=== PATIENT | male | born 1995 | race Asian ===

== ENCOUNTER 2016-08-16 07:04 | Emergency (ER) | payer OTHER ==
[2016-08-16 07:17] VITALS: BP 124/81; PULSE 85; RESP 17; TEMP 98.2; O2SAT 98
--- NOTE | 2016-08-16 07:44 | EDPHY ---
H & P Time Seen by Provider: 08/16/16 07:17 HPI/ROS: CHIEF COMPLAINT: Facial injury HISTORY OF PRESENT ILLNESS: The patient is a 21-year-old male who presents emergency department with facial injury. The patient states he tripped and fell upon waking this morning. He landed on his face. He now has significant swelling and discomfort around his nose. He thinks his nose is slightly deformed. He has a mild headache. Patient also complains of a chipped left upper front tooth. There is no tooth pain. He has a normal bite. No neck pain or back pain. The patient denies other injury. REVIEW OF SYSTEMS: My complete review of systems is negative except as mentioned in the HPI. Past Medical/Surgical History: Denies Past surgical history: Denies Smoking Status: Current some day smoker Physical Exam: Vitals noted GENERAL: No acute distress, alert. HEAD/face: No evidence of head trauma. Patient has a swollen nose and it appears slightly deformed to the left. There is no significant crepitus. No surrounding bony tenderness to palpation or crepitus. EYES: PERRLA, EOMI, normal to inspection. ENT: Airway intact, patient has an Carlos 1 fracture of his #9, no malocclusion , no hemotympanum, normal external examination. No septal hematoma. NECK: The trachea is midline. There is no crepitus. The C-spine is nontender. NEXUS criteria is negative (no midline tenderness, no distracting injury, no altered mental status, no recent alcohol use, no focal neurologic deficit). RESPIRATORY: no respiratory distress. CVS: well perfused. BACK: no tenderness. SKIN: Normal color, warm, dry. No pallor or diaphoresis. EXTREMITIES: Atraumatic, neurovascularly intact distally in all extremities, pelvis is stable , hips with full range of motion, moves all extremities freely. NEURO/PSYCH: Alert and oriented x 3, GCS 15, normal mood and affect, normal motor sensory exam. Constitutional: Initial Vital Signs Temperature (C) 36.8 C 08/16/16 07:13 Heart Rate 85 08/16/16 07:13 Respiratory Rate 17 08/16/16 07:13 Blood Pressure 124/81 H 08/16/16 07:13 O2 Sat (%) 98 08/16/16 07:13 O2 Delivery Mode Room Air Allergies/Adverse Reactions: No Known Allergies Allergy (Unverified 08/16/16 07:13) Home Medications: Medication Instructions Recorded Amphetamine Salts 20 mg Tablet 08/16/16 Cefadroxil 08/16/16 Medical Decision Making ED Course/Re-evaluation: In the emergency department I discussed possible etiologies and diagnostic options with the patient. Patient does not have a septal hematoma. I do not feel he needs CT imaging at this time. He felt comfortable with this plan. He will follow up with ENT. The patient will follow up closely with the dentist to evaluate his teeth. He has no malocclusion. I doubt alveolar ridge fracture. This appears to be an Carlos 1. I do not feel the patient needs to be placed on antibiotics. Patient did not sustain any other injury in his fall. Differential Diagnosis: My differential includes but is not limited to dental fracture, nasal fracture, facial bone fracture, subarachnoid hemorrhage, subdural hematoma, epidural hematoma, spinal injury, septal hematoma Departure - Departure Disposition: Home, Routine, Self-Care Clinical Impression: Nasal bone fracture Qualifiers: Encounter type: initial encounter Fracture type: closed Qualified Code(s): S02.2XXA - Fracture of nasal bones, initial encounter for closed fracture Tooth fracture Qualifiers: Encounter type: initial encounter Fracture type: closed Qualified Code(s): S02.5XXA - Fracture of tooth (traumatic), initial encounter for closed fracture Condition: Good Instructions: Acute Dental Trauma (ED), Nasal Fracture (ED), Head Injury (ED) Referrals: Anna Waller MD [Medical Doctor] - 5-7 days, if not improved [facility] [Outside] - 5-7 days, call for appt. Mar Monge MD [Medical Doctor] - 5-7 days, call for appt.
== END 2016-08-16 08:03 | disposition home or self-care (01) ==
DX: S02.2XXA Fracture of nasal bones, initial encounter for closed fracture (principal); S02.5XXA Fracture of tooth (traumatic), initial encounter for closed fracture; F17.200 Nicotine dependence, unspecified, uncomplicated; W01.0XXA Fall on same level from slipping, tripping and stumbling without subsequent striking against object, initial encounter

== ENCOUNTER 2017-08-21 16:46 | Emergency (ER) | payer OTHER ==
--- NOTE | 2017-08-21 16:54 | EDPHY ---
H & P Time Seen by Provider: 08/21/17 16:48 HPI/ROS: CHIEF COMPLAINT: Left knee injury HISTORY OF PRESENT ILLNESS: Patient was playing basketball and was hit medially on the left patella which dislocated laterally. He did not dislocate his knee. He was brought in by EMS with left knee pain which is moderate at rest and severe with movement or palpation. Does not radiate. Not associated with weakness or numbness distally started just after the injury at the basketball court. REVIEW OF SYSTEMS: Eye: no change in vision ENT: no sore throat Cardiac: no chest pain or syncope Pulmonary: no cough or SOB Abdomen: no vomiting, diarrhea, abdominal pain Musculoskeletal: HPI Skin: No laceration Neuro: No weakness or numbness distally Constitutional: no fever : no urinary symptoms A comprehensive 10 point review of systems is otherwise negative aside from elements mentioned in the history of present illness. PAST MEDICAL HISTORY: Negative Social history: Tobacco smoker General Appearance: Alert and conversant, cooperative. Eyes: No scleral icterus. ENT, Mouth: Normal mucous membranes. Respiratory: Normal respiratory effort, breath sounds equal, lungs are clear to auscultation. Cardiovascular: Regular rate and rhythm. Gastrointestinal: Abdomen is soft and non tender. Neurological: Alert, face symmetric, normal motor and sensory in extremities. Skin: Warm and dry, no rashes. No laceration or abrasion. Musculoskeletal: He has lateral dislocation of the left patella but normal motor and sensory in the left foot and normal dorsalis pedis pulse. Psychiatric: Moderately anxious and hyperventilating. Emergency Department course/MDM: 1702: Patient received 100 mcg fentanyl by EMS and another 100 mcg fentanyl in the emergency department. Procedure: Dislocation reduction. Indication: Dislocation of the left patella Risks, benefits, alternatives discussed with the patient including but not limited to fracture, nerve or blood vessel injury, and consent obtained. A timeout was completed. The left patella was reduced in the usual fashion without complications. Post reduction the patient's neurovascular exam is normal. Post reduction x-ray demonstrates reduction of the patella to the anatomic position. The procedure was performed by myself. Plan for a knee immobilizer and x-ray, orthopedic follow-up. 1735: results discussed. Smoking Status: Current some day smoker Constitutional: Initial Vital Signs Temperature (C) 36.5 C 08/21/17 16:48 Heart Rate 184 H 08/21/17 16:48 Respiratory Rate 22 H 08/21/17 16:48 Blood Pressure 131/85 H 08/21/17 16:48 O2 Sat (%) 100 08/21/17 16:48 O2 Delivery Mode Room Air Allergies/Adverse Reactions: No Known Allergies Allergy (Unverified 08/21/17 16:48) Home Medications: Medication Instructions Recorded Amphetamine Salts 20 mg Tablet 08/16/16 Cefadroxil 08/16/16 Hydrocodone/APAP 5/325 [[place] 1 tab PO Q4-6PRN PRN #11 tab 08/21/17 5/325] Medical Decision Making - Diagnostics Imaging Results: Imaging Impressions Knee X-Ray 08/21/17 16:55 Impression: 1. No acute osseous abnormality seen about the left knee. 2. Moderate effusion suprapatellar bursa. Imaging: I viewed and interpreted images myself Differential Diagnosis: Differential considered including but not limited to knee dislocation, patellar dislocation, tibia fracture, patellar fracture. - Data Points Medications Given: Discontinued Medications Fentanyl (Sublimaze) 100 mcg IVP EDNOW ONE Stop: 08/21/17 17:01 Last Admin: 08/21/17 17:01 Dose: 100 mcg Departure - Departure Disposition: Home, Routine, Self-Care Clinical Impression: Lateral dislocation of left patella, initial encounter Condition: Good Instructions: Patellar Dislocation (ED) Additional Instructions: Wear knee immobilizer. Limited activity with left leg. Please follow-up with Orthopedics later this week in the office. Referrals: Raymond Botello MD [Medical Doctor] - 2-3 days without fail Prescriptions: Hydrocodone/APAP 5/325 [[place] 5/325] 1 tab PO Q4-6PRN PRN #11 tab PRN Reason: For Pain
[2017-08-21] MEDS ORDERED: fentaNYL 100 MCG/2 ML INJ IVP ONE (17:00)
[2017-08-21] MEDS ORDERED: fentaNYL 100 MCG/2 ML INJ ONE (17:00)
[2017-08-21 17:42] VITALS: BP 146/95
== END 2017-08-21 17:48 | disposition home or self-care (01) ==
LOC: EDUNIT#
PROC: 0QSFXZZ Reposition Left Patella, External Approach (ICD-10-PCS; principal; 2017-08-21)
DX: S83.015A Lateral dislocation of left patella, initial encounter (principal); F17.200 Nicotine dependence, unspecified, uncomplicated; W21.05XA Struck by basketball, initial encounter; Y92.310 Basketball court as the place of occurrence of the external cause; Y99.8 Other external cause status; Y93.67 Activity, basketball
CPT/HCPCS: 96374; J3010; L1830

== ENCOUNTER 2018-02-04 15:59 | Emergency (ER) | payer OTHER ==
--- NOTE | 2018-02-04 16:10 | EDPHY ---
H & P Stated Complaint: R SIDED ABD PAIN X 1 WEEK/NAUSEA Time Seen by Provider: 02/04/18 16:10 HPI/ROS: HPI CHIEF COMPLAINT: Right lower quadrant abdominal pain rule out appendicitis. HISTORY OF PRESENT ILLNESS: 22-year-old male, presents emergency room with right lower quadrant abdominal pain. Patient states for the past week he has had intermittent right lower quadrant abdominal pain. He went to [facility] and was referred to the emergency room. At this time he denies any abdominal pain. He has nausea but no fever no vomiting he has had some diarrhea. Past Medical History: Denies medical history Past Surgical History: Denies surgical history Social History: Denies drugs alcohol tobacco. [employer] student. Family History: Noncontributory ROS REVIEW OF SYSTEMS: 10 Systems were reviewed and negative with the exception of the elements mentioned in the history of present illness. Exam Constitutional triage nursing summary reviewed, vital signs reviewed, awake/ alert. Eyes normal conjunctivae and sclera, EOMI, PERRLA. HENT normal inspection, atraumatic, moist mucus membranes, no epistaxis, neck supple/ no meningismus, no raccoon eyes. Respiratory clear to auscultation bilaterally, normal breath sounds, no respiratory distress, no wheezing. Cardiovascular rate normal, regular rhythm, no murmur, no edema, distal pulses normal. Gastrointestinal no tenderness on exam, no rebound, no guarding, normal bowel sounds, no distension, no pulsatile mass. Genitourinary no CVA tenderness. Musculoskeletal no midline vertebral tenderness, full range of motion, no calf swelling, no tenderness of extremities, no meningismus, good pulses, neurovascularly intact. Skin pink, warm, & dry, no rash, skin atraumatic. Neurologic awake, alert and oriented x 3, AAOx3, moves all 4 extremities equally, motor intact, sensory intact, CN II-XII intact, normal cerebellar, normal vision, normal speech. Psychiatric normal mood/affect. Heme/Lymph/Immune no lymphadenopathy. Differential diagnosis includes but is not limited to and in no particular order : Bowel obstruction, appendicitis, gallbladder disease, diverticulitis, colitis , enteritis, perforated viscus, gastritis, GERD, esophagitis, urinary tract infection, pyelonephritis, kidney stones Medical Decision Making: Plan for this patient IV establishment IV fluid bolus , check basic blood work, CT scan abdomen pelvis with IV contrast rule out acute appendicitis. Re-evaluation: CT scan abdomen pelvis with IV contrast called to me by Dr. Denys Palomares. Negative for acute appendicitis. Appendix was visualized. There is some trace free fluid in the pelvis. Unusual for male however he does have some small bowel that has fluid-filled segments. Most likely enteritis. Please see full dictation by Dr. Denys Palomares. I do recommend bland diet over the next 72 hr. I discussed return precautions with the patient understands return emergency room if develops worsening abdominal pain, fever, vomiting Blood work has been reviewed no elevated white blood cell count. He does not have fever here. His abdomen is benign on exam. He denies any abdominal pain. Return precautions discussed with him. He is comfortable this. Patient understands return emergency room if develops worsening abdominal pain, fever, vomiting. Source: Patient - Personal History Current Tetanus Diphtheria and Acellular Pertussis (TDAP): Unsure - Medical/Surgical History Hx Asthma: No Hx Chronic Respiratory Disease: No Hx Diabetes: No Hx Cardiac Disease: No Hx Renal Disease: No Hx Cirrhosis: No Hx Alcoholism: No Hx HIV/AIDS: No Hx Splenectomy or Spleen Trauma: No Other PMH: denies - Social History Smoking Status: Current some day smoker Constitutional: Initial Vital Signs Temperature (C) 36.8 C 02/04/18 16:03 Heart Rate 71 02/04/18 16:03 Respiratory Rate 17 02/04/18 16:03 Blood Pressure 135/81 H 02/04/18 16:03 O2 Sat (%) 98 02/04/18 16:03 O2 Delivery Mode Room Air Allergies/Adverse Reactions: No Known Allergies Allergy (Verified 02/04/18 16:02) Home Medications: Medication Instructions Recorded Amphetamine Salts 20 mg Tablet 08/16/16 Zofran Odt 02/04/18 Medical Decision Making - Diagnostics Imaging Results: Imaging Impressions Abdomen CT 02/04/18 16:21 Impression: 1. Normal CT appearance of the appendix. 2. Moderate constipation/obstipation. 3. There is some free fluid in the caudal pelvis, which is a nonspecific finding. A concurrent gastritis is not excluded. 4. Incomplete urinary bladder distention which may account for the mildly thickened wall, although correlation with urinalysis is suggested. Findings were discussed with Michael Olsen MD at 18:04, on 02/04/2018. - Data Points Laboratory Results: Laboratory Results 02/04/18 16:21 02/04/18 16:21 02/04/18 02/04/18 02/04/18 17:10 16:21 16:21 WBC 7.98 10^3/uL 10^3/uL (3.80-9.50) RBC 6.07 10^6/uL 10^6/uL (4.40-6.38) Hgb 17.5 g/dL g/dL (13.7-17.5) Hct 49.8 % % (40.0-51.0) MCV 82.0 fL fL (81.5-99.8) MCH 28.8 pg pg (27.9-34.1) MCHC 35.1 g/dL g/dL (32.4-36.7) RDW 12.4 % % (11.5-15.2) Plt Count 385 10^3/uL 10^3/uL (150-400) MPV 8.6 fL L fL (8.7-11.7) Neut % (Auto) 61.4 % % (39.3-74.2) Lymph % (Auto) 30.3 % % (15.0-45.0) [place] % (Auto) 6.1 % % (4.5-13.0) Eos % (Auto) 1.6 % % (0.6-7.6) Baso % (Auto) 0.5 % % (0.3-1.7) Nucleat RBC Rel Count 0.0 % % (0.0-0.2) Absolute Neuts (auto) 4.89 10^3/uL 10^3/uL (1.70-6.50) Absolute Lymphs (auto) 2.42 10^3/uL 10^3/uL (1.00-3.00) Absolute Monos (auto) 0.49 10^3/uL 10^3/uL (0.30-0.80) Absolute Eos (auto) 0.13 10^3/uL 10^3/uL (0.03-0.40) Absolute Basos (auto) 0.04 10^3/uL 10^3/uL (0.02-0.10) Absolute Nucleated RBC 0.00 10^3/uL 10^3/uL (0-0.01) Immature Gran % 0.1 % % (0.0-1.1) Immature Gran # 0.01 10^3/uL 10^3/uL (0.00-0.10) Sodium 141 mEq/L mEq/L (135-145) Potassium 3.9 mEq/L mEq/L (3.3-5.0) Chloride 103 mEq/L mEq/L (97-110) Carbon Dioxide 26 mEq/l mEq/l (22-31) Anion Gap 12 mEq/L mEq/L (6-14) BUN 10 mg/dL mg/dL (7-23) Creatinine 0.9 mg/dL mg/dL (0.7-1.3) Estimated GFR > 60 Glucose 91 mg/dL mg/dL (70-100) Calcium 9.9 mg/dL mg/dL (8.5-10.4) Total Bilirubin 1.4 mg/dL mg/dL (0.1-1.4) Conjugated Bilirubin 0.2 mg/dL mg/dL (0.0-0.5) Unconjugated Bilirubin 1.2 mg/dL H mg/dL (0.0-1.1) AST 28 IU/L IU/L (17-59) ALT 34 IU/L IU/L (21-72) Alkaline Phosphatase 86 IU/L IU/L (38-126) Total Protein 8.4 g/dL H g/dL (6.3-8.2) Albumin 4.9 g/dL g/dL (3.5-5.0) Lipase 36 IU/L IU/L (23-300) Urine Color YELLOW Urine Appearance CLEAR Urine pH 6.0 (5.0-7.5) Ur Specific [place] 1.011 (1.002-1.030) Urine Protein NEGATIVE (NEGATIVE) Urine Ketones NEGATIVE (NEGATIVE) Urine Blood NEGATIVE (NEGATIVE) Urine Nitrate NEGATIVE (NEGATIVE) Urine Bilirubin NEGATIVE (NEGATIVE) Urine Urobilinogen NEGATIVE EU EU (0.2-1.0) Ur Leukocyte Esterase NEGATIVE (NEGATIVE) Urine Glucose NEGATIVE (NEGATIVE) Medications Given: Discontinued Medications Sodium Chloride (Ns) 1,000 mls @ 0 mls/hr IV EDNOW ONE; Wide Open PRN Reason: Protocol Stop: 02/04/18 16:22 Last Admin: 02/04/18 16:28 Dose: 1,000 mls Departure - Departure Disposition: Home, Routine, Self-Care Clinical Impression: Abdominal pain Condition: Good Instructions: Acute Abdominal Pain (ED) Additional Instructions: 1. Return if worsening abdominal pain. 2. [place] diet over the next 72 hr 3. Return if worse. Referrals: NONE *PRIMARY CARE P,. [Primary Care Provider] - As per Instructions Stand Alone Forms: School Excuse
[2018-02-04] MEDS ORDERED: NS 1,000 ML IV ONE (16:21)
[2018-02-04 16:30] LABS: PLATELET COUNT 385 10^3/uL (150-400)
[2018-02-04] MEDS ORDERED: IOPAMIDOL (ISOVUE-300) 100 ML BTL ONE (16:44)
[2018-02-04 18:23] VITALS: BP 123/73
== END 2018-02-04 18:22 | disposition home or self-care (01) ==
DX: R10.0 Acute abdomen (principal); K59.00 Constipation, unspecified; E86.9 Volume depletion, unspecified; F17.200 Nicotine dependence, unspecified, uncomplicated
CPT/HCPCS: Q9967